=== PATIENT | female | born 1985 | race Caucasian/White ===

== ENCOUNTER 2018-06-18 22:32 | Emergency (ER) | payer SELFPAY ==
[~2018-06-18] VITALS: Ht 175.3 cm; Wt 61.2 kg
[2018-06-18 23:24] VITALS: BP 105/73
[2018-06-18 23:24] LABS: HEMATOCRIT 42.5 % (36.0-47.0); HEMOGLOBIN 14.6 g/dL (12.0-15.5); RED BLOOD COUNT 4.3 x10^6/uL (3.50-5.40); RED CELL DISTRIBUTION WIDTH 12.6 % (11.5-14.5); WHITE BLOOD COUNT 10.8 x10^3/uL (4.0-11.0)
[2018-06-18] MEDS: KETOROLAC 30 MG/ML VIAL. IV ONE (23:25)
[2018-06-18] MEDS ORDERED: CONTRAST GIVEN MC PRN (23:30)
[2018-06-18 23:33] LABS: BARBITURATES NEG (NEG); BENZODIAZEPINES NEG (NEG); CANNABINOIDS POS (NEG); COCAINE NEG (NEG); METHADONE NEG (NEG); OPIATES NEG (NEG); PHENCYCLIDINE NEG (NEG)
[2018-06-18 23:34] LABS: AMPHETAMINE/METHAMPHETAMINE NEG (NEG); BACTERIA,URINE FEW /HPF (0-FEW); BILIRUBIN,URINE NEG (NEG); CLARITY,URINE CLOUDY; COLOR,URINE YELLOW; GLUCOSE,URINE NEG (NEG); NITRITE,URINE POS (NEG); U PREG PATIENT NEGATIVE (NEG); UROBILINOGEN,URINE 0.2 mg/dL (0.2 mg/dL); WBC,URINE TNTC /HPF (0-4)
[2018-06-18 23:36] LABS: ALBUMIN 3.4 g/dL (3.4-5.0); ALBUMIN/GLOBULIN RATIO 0.7 (1.0-1.7); CALCIUM 9.4 mg/dL (8.5-10.1); CREATININE 0.7 mg/dL (0.6-1.0); GFR 96.4; TOTAL BILIRUBIN 0.3 mg/dL (0.2-1.0)
[2018-06-18] MEDS: IOHEXOL 300 MG/ML 75 ML VIAL. IV ONE (23:36)
--- NOTE | 2018-06-19 00:24 | RAD ---
CT abdomen pelvis with contrast dated 06/18/2018. No comparison available. CLINICAL INDICATION: Right-sided abdominal pain for 4 days. TECHNIQUE: Contiguous axial imaging of the abdomen and pelvis performed after the administration of 75 cc Omnipaque 300. One or more of the following individualized dose reduction techniques were utilized for this examination: 1. Automated exposure control 2. Adjustment of the mA and/or kV according to patient size 3. Use of iterative reconstruction technique. FINDINGS: Limited images of lung bases are clear. Heart size within normal limits. No pleural or pericardial effusion. Liver, spleen, pancreas, adrenal glands, gallbladder unremarkable. There is mild right-sided pelvocaliectasis with dilation and wall thickening of the right renal pelvis. There is also urothelial thickening involving the proximal right ureter. No apparent obstructing stone, although evaluation is limited in the presence of contrast material. There is no left-sided hydronephrosis. Unopacified GI tract normal in caliber and contour. No focal bowel wall thickening. No inflammatory stranding in the mesentery. The appendix is normal in caliber. There are 2 short segment intussusceptions in the left lower quadrant (images 54 through 56 and images 60 through 65. No apparent mass or inflammatory changes in the mesentery. GI tract otherwise unremarkable. No adenopathy or ascites. Normal appendix. Images of pelvis show nondistended urinary bladder. There is mild diffuse bladder wall thickening. Uterus and adnexa are unremarkable. No significant free fluid. No pelvic lymphadenopathy. Bone windows show no acute findings. IMPRESSION: 1. There is mild pelvicaliectasis on the right with urothelial thickening and enhancement involving the right renal pelvis and proximal right ureter. This is of uncertain etiology but could be related to ascending ureteritis and/or pyelonephritis. Mild diffuse wall thickening of the urinary bladder could also represent acute cystitis. Recommend correlation with urinalysis. 2. There are 2 short segment intussusceptions involving distal small bowel loops in the left lower quadrant. These are likely transient and clinically insignificant. There is no apparent lead mass and no mesenteric inflammatory changes are noted. Electronically signed by: Mathew Deras MD (06/19/2018 12:21 AM) [facility]
[2018-06-19] MEDS ORDERED: HYDR-3165 PO (00:40)
[2018-06-19] MEDS ORDERED: CIPR500T PO (00:40)
[2018-06-19] MEDS ORDERED: IV NORMAL SALINE 50ML 50 ML ONE (00:45)
[2018-06-19] MEDS ORDERED: cefTRIAXone SODIUM 1 GM VIAL ONE (00:46)
--- NOTE | 2018-06-19 00:50 | ED.ADGEN ---
Past History Past Medical History: Asthma Past Surgical History: Tonsillectomy, Tubal ligation Alcohol Use: None Drug Use: None Adult General Chief Complaint Chief Complaint flank pain HPI HPI 33 years old female presented to the emergency department with the right flank pain , for 1 week associated with nausea no vomiting no diarrhea no urinary symptoms no fever no chills Review of Systems Review of Systems Constitutional: Denies fever or chills [] Eyes: Denies change in visual acuity, redness, or eye pain [] HENT: Denies nasal congestion or sore throat [] Respiratory: Denies cough or shortness of breath [] Cardiovascular: No additional information not addressed in HPI [] GI: Denies abdominal pain, nausea, vomiting, bloody stools or diarrhea [] : Denies dysuria or hematuria [] Musculoskeletal: Denies joint pain [] Integument: Denies rash or skin lesions [] Neurologic: Denies headache, focal weakness or sensory changes [] Endocrine: Denies polyuria or polydipsia [] All other systems were reviewed and found to be within normal limits, except as documented in this note. Current Medications Current Medications Current Medications Medications (Trade) Dose Ordered Sig/Diana Start Time Stop Time Status Last Admin Dose Admin Ceftriaxone Sodium 1 gm/ Sodium Chloride 50 ml @ 100 mls/hr 1X ONCE 06/19/18 00:30 06/19/18 00:59 Info (Do NOT chart on this entry -- for MONITORING) 1 each PRN DAILY PRN 06/18/18 23:30 06/20/18 23:29 Iohexol (Omnipaque 300 Mg/ml) 75 ml 1X ONCE 06/18/18 23:45 06/18/18 23:46 DC 06/18/18 23:36 75 ML Ketorolac Tromethamine (Toradol 30mg Vial) 30 mg 1X ONCE 06/18/18 23:30 06/18/18 23:31 DC 06/18/18 23:25 30 MG Allergies Allergies Allergies Coded Allergies Type Severity Reaction Last Updated Verified No Known Drug Allergies 06/18/18 No Physical Exam Physical Exam Constitutional: Well developed, well nourished, no acute distress, non-toxic appearance. [] HENT: Normocephalic, atraumatic, bilateral external ears normal, oropharynx moist, no oral exudates, nose normal. [] Eyes: PERRLA, EOMI, conjunctiva normal, no discharge. [] Neck: Normal range of motion, no tenderness, supple, no stridor. [] Cardiovascular:Heart rate regular rhythm, no murmur [] Lungs & Thorax: Bilateral breath sounds clear to auscultation [] Abdomen: Bowel sounds normal, soft, no tenderness, no masses, no pulsatile masses. [] Skin: Warm, dry, no erythema, no rash. [] Back: No tenderness, no CVA tenderness. [] Extremities: No tenderness, no cyanosis, no clubbing, ROM intact, no edema. [] Neurologic: Alert and oriented X 3, normal motor function, normal sensory function, no focal deficits noted. [] Psychologic: Affect normal, judgement normal, mood normal. [] Current Patient Data Vital Signs Vital Signs Date Time Temp Pulse Resp B/P (MAP) Pulse Ox O2 Delivery O2 Flow Rate FiO2 06/18/18 23:24 85 20 105/73 (84) 97 Room Air 06/18/18 23:09 97.7 Lab Results Laboratory Tests Test 06/18/18 22:50 06/18/18 23:05 Urine Collection Type Unknown Urine Color Yellow Urine Clarity Cloudy Urine pH 6.5 Urine Specific [place] 1.020 Urine Protein 100 mg/dl (NEG-TRACE) Urine Glucose (UA) Neg mg/dL (NEG) Urine Ketones (Stick) Neg mg/dL (NEG) Urine Blood Mod (NEG) Urine Nitrite Pos (NEG) Urine Bilirubin Neg (NEG) Urine Urobilinogen Dipstick 0.2 mg/dL (0.2 mg/dL) Urine Leukocyte Esterase Large (NEG) Urine RBC 3-5 /HPF (0-2) Urine WBC Tntc /HPF (0-4) Urine Squamous Epithelial Cells None /LPF Urine Bacteria Few /HPF (0-FEW) Urine Test Negative (NEG) Urine Opiates Screen Neg (NEG) Urine Methadone Screen Neg (NEG) Urine Barbiturates Neg (NEG) Urine Phencyclidine Screen Neg (NEG) Urine Amphetamine/Methamphetamine Neg (NEG) Urine Benzodiazepines Screen Neg (NEG) Urine Cocaine Screen Neg (NEG) Urine Cannabinoids Screen Pos (NEG) Urine Ethyl Alcohol Neg (NEG) White Blood Count 10.8 x10^3/uL (4.0-11.0) Red Blood Count 4.30 x10^6/uL (3.50-5.40) Hemoglobin 14.6 g/dL (12.0-15.5) Hematocrit 42.5 % (36.0-47.0) Mean Corpuscular Volume 99 fL (79-100) Mean Corpuscular Hemoglobin 34 pg (25-35) Mean Corpuscular Hemoglobin Concent 34 g/dL (31-37) Red Cell Distribution Width 12.6 % (11.5-14.5) Platelet Count 228 x10^3/uL (140-400) Sodium Level 140 mmol/L (136-145) Potassium Level 4.0 mmol/L (3.5-5.1) Chloride Level 104 mmol/L (98-107) Carbon Dioxide Level 31 mmol/L (21-32) Anion Gap 5 (6-14) L Blood Urea Nitrogen 17 mg/dL (7-20) Creatinine 0.7 mg/dL (0.6-1.0) Estimated GFR (Cockcroft-Gault) 96.4 BUN/Creatinine Ratio 24 (6-20) H Glucose Level 85 mg/dL (70-99) Calcium Level 9.4 mg/dL (8.5-10.1) Total Bilirubin 0.3 mg/dL (0.2-1.0) Aspartate Amino Transferase (AST) 14 U/L (15-37) L Alanine Aminotransferase (ALT) 15 U/L (14-59) Alkaline Phosphatase 55 U/L (46-116) Total Protein 8.0 g/dL (6.4-8.2) Albumin 3.4 g/dL (3.4-5.0) Albumin/Globulin Ratio 0.7 (1.0-1.7) L Lipase 150 U/L (73-393) EKG EKG [] Radiology/Procedures Radiology/Procedures [] Course & Med Decision Making Course & Med Decision Making Pertinent Labs and Imaging studies reviewed. (See chart for details) [] Final Impression Final Impression [] Problems: (1) Pyelonephritis Dragon Disclaimer Dragon Disclaimer This electronic medical record was generated, in whole or in part, using a voice recognition dictation system. ARGELIA RAPHAEL MD Jun 19, 2018 00:50
== END 2018-06-19 01:00 | disposition home or self-care (01) ==
LOC: ER 22:32
DX: N12 Tubulo-interstitial nephritis, not specified as acute or chronic (principal); J45.909 Unspecified asthma, uncomplicated; Z98.51 Tubal ligation status
CPT/HCPCS: 36415; 74177; 80053; 80307; 81001; 81025; 83690; 85027; 87086; 96374; 96375; 99284; J0696; J1885; Q9967; 87186